=== PATIENT | male | born 2000 | race Two or more races ===

== ENCOUNTER 2024-12-17 10:36 | Emergency (ER) | payer MEDICAID, SELFPAY ==
[2024-12-17 10:37] VITALS: PULSE 80; RESP 18; O2SAT 98
[2024-12-17 10:56] VITALS: BP 120/79; PULSE 79; RESP 16; TEMP 37; O2SAT 98; BMI 15.3
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
== END 2024-12-17 13:16 | disposition home or self-care (01) ==
LOC: SERX 12:42
PROVIDERS: Emergency Provider Emergency Medicine
DX: S09.90XA Unspecified injury of head, initial encounter (principal); V49.9XXA Car occupant (driver) (passenger) injured in unspecified traffic accident, initial encounter
CPT/HCPCS: 70450; 71046; 72125; 99284